=== PATIENT | male | born 1985 | race Hispanic/Latino ===

== ENCOUNTER 2019-08-27 16:17 | Emergency (ER) | payer SELFPAY ==
[2019-08-27] MEDS ORDERED: EPINEPHrine 1 MG/10 ML Abboject SYRINGE ONE (16:41)
[2019-08-27] MEDS ORDERED: Lidocaine 1% w/Epinephrine 1:100K 30 ML VIAL ONE (16:42)
[2019-08-27] MEDS ORDERED: Lidocaine 1% PF 5 ML VIAL ONE (16:42)
--- NOTE | 2019-08-27 16:59 | RAD ---
XR Hand Lt 3 View STANDARD: 08/27/2019 4:38 PM CLINICAL INDICATION: History of left hand trauma COMPARISON: None. FINDINGS: Bones: There is healed fracture deformity involving the small finger metacarpal. No acute fracture o r subluxation is demonstrated. Joints: Joint spaces are preserved. Soft Tissue: Soft tissues are normal appearing. IMPRESSION: No acute osseous abnormality..
[2019-08-27] MEDS ORDERED: Bacitracin 1 PK ONE (17:13)
[2019-08-27] MEDS ORDERED: CEFAZOLIN 1 GM VIAL ONE (17:52)
[2019-08-27] MEDS ORDERED: Adacel (T-DAP) 0.5 ML SYRINGE ONE (17:52)
== END 2019-08-27 22:11 | disposition home or self-care (01) ==
LOC: BURERS 16:17
DX: S61.412A Laceration without foreign body of left hand, initial encounter (principal); S01.81XA Laceration without foreign body of other part of head, initial encounter; Z23 Encounter for immunization; W20.8XXA Other cause of strike by thrown, projected or falling object, initial encounter
CPT/HCPCS: 12020; 90471; 90715; 96372; J0171; J0690; J2001